=== PATIENT | female | born 1995 | race Caucasian/White ===

== ENCOUNTER 2020-11-16 17:51 | Emergency (ER) | payer SELFPAY ==
[2020-11-16 18:45] LABS: Bilirubin Neg (Negative); Blood, Urine 150 (Negative); Clarity Cloudy (Clear); Glucose, Urine (Dipstick) Normal (Negative); Ketone, Urine Negative (Negative); Leukocyte 500 (Negative); Nitrite Positive (Negative); Protein, Urine (Dipstick) 100 mg/dl (Neg-Trace); Urobilinogen Normal mg/dL (Less than 2)
[2020-11-16 18:51] LABS: Pregnancy Test - Urine (BHCG) Negative (Negative); Pregu Control Background? CLEAR/WHITE (CLR/WHITE); Pregu Control Bar Appear? YES (CONTROL BAR)
[2020-11-16 19:10] LABS: Bacteria/HPF 4+ HPF (None Seen); Squamous Epithelial 21-50 HPF (0-3); WBC/HPF Greater than 50 HPF (0-3)
[2020-11-16 19:17] LABS: #Basophils 0.1 10x3/uL (0.0-0.2); #Monocytes 1.1 10x3/uL (0.0-1.1); #Neutrophils 14.8 10x3/uL (1.5-8.4); %Basophils 0.3 % (0.0-2.0); %Eosinophils 0.2 % (0.0-6.0); %Lymphocytes 12.3 % (18.0-47.0); %Monocytes 5.9 % (0.0-10.0); %Neutrophils 80.3 % (40.0-75.0); Mean Corpuscular HGB CONC 32.1 g/dL (32.0-36.0); Mean Corpuscular Hemoglobin 25.9 pg (27.0-33.0); Mean Corpuscular Volume 80.8 fl (81.6-98.3); Mean Platelet Volume 9.9 fl (7.4-10.4); Platelet Count 273 10x3/uL (150-450); RBC Distribution Width 14.1 % (11.5-14.5); Red Blood Cell (RBC) Count 5.01 10x6/uL (3.90-5.03); White Blood Cell (WBC) Count 18.5 10x3/uL (3.5-10.5)
[2020-11-16] MEDS ORDERED: cefTRIAXone\\ROCEPHIN 2 GM VIAL ONE (19:26)
[2020-11-16 19:27] LABS: ALT (SGPT) 41 U/L (8-55); AST (SGOT) 26 U/L (5-34); Albumin 3.6 g/dL (3.5-5.0); Alkaline Phosphatase 72 U/L (40-110); Anion Gap 16 mmol/L (10-20); BUN (Urea Nitrogen) 7 mg/dL (7.0-18.7); Calc. Creatinine Clearance 0 mL/min (70-130); Carbon Dioxide 23 mmol/L (22-29); Chloride 105 mmol/L (98-107); Globulin 3.2 g/dL (2.4-3.5); Glucose 97 mg/dL (70-105); Potassium 3.7 mmol/L (3.5-5.1); Protein, Total 6.8 g/dL (6.0-8.3); Sodium 140 mmol/L (136-145)
[2020-11-16] MEDS ORDERED: Ketorolac Tromethamine 30 MG/ML VIAL ONE (20:02)
== END 2020-11-16 22:13 | disposition home or self-care (01) ==
LOC: CSHERS 17:51
DX: N10 Acute pyelonephritis (principal); D72.829 Elevated white blood cell count, unspecified
CPT/HCPCS: 80053; 81003; 81015; 81025; 83605; 85025; 87040; 87077; 87086; 87186; 96365; 96375; J0696; J1885

== ENCOUNTER 2021-03-22 00:18 | Inpatient (IN) | payer MEDICAID ==
[2021-03-22] MEDS ORDERED: Morphine 4 MG/ML VIAL ONE (00:47)
[2021-03-22] MEDS ORDERED: Promethazine HCl 25 MG/ML VIAL ONE (00:47)
[2021-03-22] MEDS ORDERED: Ondansetron PF 4 MG/2 ML Vial IVP PRN (01:59)
[2021-03-22] MEDS ORDERED: Promethazine HCl 25 MG in Sodium Chloride 0.9% 50 ML IVPB PRN (01:59)
[2021-03-22] MEDS ORDERED: Promethazine HCl 25 MG/ML VIAL IM PRN (01:59)
[2021-03-22] MEDS ORDERED: Morphine 4 MG/ML VIAL SLOW IVP PRN (02:12)
[2021-03-22] MEDS ORDERED: Piperacillin/Tazobactam 3.375 GM in Sodium Chloride 0.9% 100 ML IVPB SCH (03:15)
[2021-03-22 04:58] VITALS: BMI 37.5
[2021-03-22] MEDS: Lactated Ringer's 1,000 ML IV SCH ×3 (05:49→22:00)
[2021-03-22 05:51] LABS: Anion Gap 12 mmol/L (10-20); BUN (Urea Nitrogen) 7 mg/dL (7.0-18.7); Calc. Creatinine Clearance 287 mL/min (70-130); Calcium 7.8 mg/dL (7.8-10.44); Carbon Dioxide 19 mmol/L (22-29); Chloride 112 mmol/L (98-107); Glucose 109 mg/dL (70-105); Potassium 3.3 mmol/L (3.5-5.1); Sodium 140 mmol/L (136-145)
[2021-03-22 05:58] LABS: #Monocytes 0.5 10x3/uL (0.0-1.1); #Neutrophils 9.4 10x3/uL (1.5-8.4); %Basophils 0.3 % (0.0-2.0); %Lymphocytes 7.1 % (18.0-47.0); %Monocytes 4.4 % (0.0-10.0); %Neutrophils 86.4 % (40.0-75.0); Hemoglobin 10.1 g/dL (12.0-15.5); Mean Corpuscular HGB CONC 31.8 g/dL (32.0-36.0); Mean Corpuscular Hemoglobin 25.7 pg (27.0-33.0); Mean Corpuscular Volume 80.9 fl (81.6-98.3); Mean Platelet Volume 10.1 fl (7.4-10.4); Platelet Count 247 10x3/uL (150-450); RBC Distribution Width 14.3 % (11.5-14.5); Red Blood Cell (RBC) Count 3.93 10x6/uL (3.90-5.03); White Blood Cell (WBC) Count 10.8 10x3/uL (3.5-10.5)
[2021-03-22] MEDS ORDERED: Acetaminophen 500 MG TAB PO PRN (09:25)
[2021-03-22] MEDS ORDERED: Lactated Ringer's 1,000 ML IV SCH (09:30)
[2021-03-22] MEDS: Piperacillin/Tazobactam 3.375 GM in Sodium Chloride 0.9% 100 ML IVPB SCH ×2 (11:58→20:33)
[2021-03-23] MEDS: Piperacillin/Tazobactam 3.375 GM in Sodium Chloride 0.9% 100 ML IVPB SCH ×2 (04:24→13:24)
[2021-03-23] MEDS: Lactated Ringer's 1,000 ML IV SCH ×3 (05:00→13:24)
[2021-03-23] MEDS ORDERED: Nitrofurantoin Macrocrystal 50 MG CAP PO SCH ×2 (07:30→21:00)
[2021-03-23 11:02] VITALS: BP 132/72; TEMP 98.5
== END 2021-03-23 17:30 | disposition home or self-care (01) | DRG 832 ==
LOC: CSHERS 00:18 → CSHANTE 04:12
PROVIDERS: ADMIT Obstetrics & Gynecology; ATTEND Obstetrics & Gynecology
DX: O99.891 Other specified diseases and conditions complicating pregnancy (principal); N13.2 Hydronephrosis with renal and ureteral calculous obstruction; Z20.822 Contact with and (suspected) exposure to COVID-19; Z3A.21 21 weeks gestation of pregnancy
CPT/HCPCS: 80048; 85025; 96365; 96375; J2270; J2405; J2543; J2550; J3490; J7120

== ENCOUNTER 2023-05-22 13:51 | Emergency (ER) | payer SELFPAY | END 2023-05-22 14:22 | disposition home or self-care (01) | LOC: CSHERS 13:51 | DX: S01.81XA Laceration without foreign body of other part of head, initial encounter (principal); Y04.1XXA Assault by human bite, initial encounter | CPT/HCPCS: 99283 ==